=== PATIENT | female | born 1965 | race Hispanic/Latino ===

== ENCOUNTER → 2019-03-24 | Day surgery (SDC) | payer BC ==
--- OUTSIDE RECORDS SUMMARY | 2019-03-24 10:48 | XMS REPORT ---
:1965 Author Organization [employer] Care Team Providers Name Role Phone Chana Null Provider Role Unavailable Allergies No Known Allergies Problems Problem Type Condition Code Onset Dates Condition Status Problem Bilateral carpal tunnel syndrome G56.03 Active Problem Adult general medical exam Z00.00 Active Problem Paresthesia of both hands R20.2 Active Assessment Left breast mass N63.20 Active Assessment Abnormal mammogram of left breast R92.8 Active Problem Constipation, unspecified K59.00 Active constipation type Problem Traumatic injury of head, initial S09.90XA Active encounter Problem Acute post-traumatic headache, not G44.319 Active intractable Problem Abnormal mammogram of left breast R92.8 Active Problem Depression with anxiety F41.8 Active Problem Tinea unguium B35.1 Active Problem Allergic state, initial encounter T78.40XA Active Problem Keratosis pilaris L85.8 Active Medications No Known Medications Results No Known Results Summary Purpose [facility] Submission
--- OUTSIDE RECORDS SUMMARY | 2019-03-24 10:48 | XMS REPORT ---
:1965 Author Organization [employer] Care Team Providers Name Role Phone Chana Null Provider Role Unavailable Allergies No Known Allergies Problems Problem Type Condition Code Onset Dates Condition Status Problem Adult general medical exam Z00.00 Active Problem Depression with anxiety F41.8 Active Problem Tinea unguium B35.1 Active Problem Otalgia of both ears H92.03 Active Problem Abnormal mammogram of left breast R92.8 Active Problem Vertigo R42 Active Problem Allergic state, initial encounter T78.40XA Active Problem Keratosis pilaris L85.8 Active Problem Acute post-traumatic headache, not G44.319 Active intractable Problem Traumatic injury of head, initial S09.90XA Active encounter Problem Constipation, unspecified K59.00 Active constipation type Assessment Abnormal mammogram of left breast R92.8 Active Problem Bilateral carpal tunnel syndrome G56.03 Active Assessment Left breast mass N63.20 Active Problem Paresthesia of both hands R20.2 Active Medications No Known Medications Results No Known Results Summary Purpose [employer] Submission
--- OUTSIDE RECORDS SUMMARY | 2019-03-24 10:48 | XMS REPORT ---
:1965 Author Organization [employer] Care Team Providers Name Role Phone Chana Null Provider Role Unavailable Allergies, Adverse Reactions, Alerts Substance Reaction Event Type N.K.D.A. Info Not Available Non Drug Allergy Problems Problem Type Condition Code Onset Dates Condition Status Problem Constipation, unspecified K59.00 Active constipation type Problem Paresthesia of both hands R20.2 Active Problem Bilateral carpal tunnel syndrome G56.03 Active Assessment Keratosis pilaris L85.8 Active Assessment Acute post-traumatic headache, not G44.319 Active intractable Assessment Traumatic injury of head, initial S09.90XA Active encounter Problem Traumatic injury of head, initial S09.90XA Active encounter Problem Allergic state, initial encounter T78.40XA Active Problem Acute post-traumatic headache, not G44.319 Active intractable Problem Tinea unguium B35.1 Active Problem Adult general medical exam Z00.00 Active Problem Keratosis pilaris L85.8 Active Problem Depression with anxiety F41.8 Active Medications Medication Code Code Instructions Start End Status Dosage System Date Date Effexor XR [facility] 40082054411 37.5 MG Orally Active 1 capsule with Once a day food Gabapentin [facility] 58458701987 300 MG Orally Active 1 capsule Twice a day [place] ND 51959168211 10 % Externally Nov 05, August 01, Active 1 application Once a day 2018 2019 to affected area Alprazolam ND 84577026456 1 MG Orally Active 1 tablet Onced a day PRN Lactic Acid [facility] 59633318846 10 % Externally Active 1 application Twice a day to affected area Results No Known Results Summary Purpose [employer] Submission
--- OUTSIDE RECORDS SUMMARY | 2019-03-24 10:48 | XMS REPORT ---
[...] Constipation, unspecified K59.00 Active constipation type Assessment Otalgia of both ears H92.03 Active Problem Bilateral carpal tunnel syndrome G56.03 Active Assessment Vertigo R42 Active Problem Paresthesia of both hands R20.2 Active Medications Medication Code Code Instructions Start End Status Dosage System Date Date Lactic Acid [facility] [place] 03731582977 10 % Externally Active 1 application Twice a day to affected area Effexor XR [facility] [place] 24855333785 37.5 MG Orally Active 1 capsule with Once a day food Alprazolam [facility] [place] 04628973692 1 MG Orally Active 1 tablet Onced a day PRN Gabapentin [facility] [place] 87223374368 300 MG Orally Active 1 capsule Twice a day [place] ND 76541219043 10 % Externally Nov 05, August 01, Active 1 application Once a day 2018 2019 to affected area Pseudoeph-Bro [facility] [place] [id number] 30-2-10 MG/5ML Feb 17, Feb 27, Active 5 ml mphen-DM Orally q 6 2018 2019 hours PRN Results No Known Results Summary Purpose [employer] Submission
--- OUTSIDE RECORDS SUMMARY | 2019-03-24 10:48 | XMS REPORT ---
:1965 Author Organization [employer] Care Team Providers Name Role Phone Chana Null Provider Role Unavailable Allergies No Known Allergies Problems Problem Type Condition Code Onset Dates Condition Status Problem Constipation, unspecified K59.00 Active constipation type Problem Tinea unguium B35.1 Active Problem Adult general medical exam Z00.00 Active Problem Depression with anxiety F41.8 Active Problem Paresthesia of both hands R20.2 Active Problem Bilateral carpal tunnel syndrome G56.03 Active Problem Keratosis pilaris L85.8 Active Problem Allergic state, initial encounter T78.40XA Active Medications No Known Medications Results No Known Results Summary Purpose [employer] Submission
--- NOTE | 2019-03-24 14:14 | RAD REPORT ---
EXAM DESCRIPTION: US - Breast Core BX w/US Guidance - 03/24/2019 12:06 pm CLINICAL HISTORY: ^N53.20, R92.8 COMPARISON: Ultrasound March 02, 2019, mammogram January 14, 2019 TECHNIQUE: The patient presents for ultrasound-guided biopsy of a previously detailed 15 millimeter mass in the lateral 3 o'clock left breast. The ultrasound-guided core biopsy procedure, risks and alternatives were discussed with the patient i n detail. After answering all questions, both oral and written consent were obtained. Time out proced ure was performed. The patient had no contraindicated allergy or medication history. Preliminary imaging identified the 15 millimeter lateral left breast mass. Sonographic evaluation of the outer left breast did not identify any other mass. This is the correlate to prior imaging. The lateral left breast was prepped and draped in the usual sterile fashion. From a lateral approach, skin and deeper tissues were anesthetized with 1% lidocaine. Under direct sonographic visualization a 14 gauge vacuum assisted core biopsy needle was advanced and placed at the lateral margin of the ma ss. Under direct sonographic visualization the initial biopsy was performed. Needle was seen to trans it the mass. A small fragment of tissue and fluid was observed when the specimen was removed from the needle. Re-evaluation of the breast tissue show the mass to be poorly visualized and reduced in volu me. Remnant of the mass was identified an a second core biopsy was obtained. After the second biopsy that was no remnant or clearly defined mass remaining. All obtained material was retained for cytology/histology evaluation. There was no remnant site ident ifiable that would allow all accurate placement of a post biopsy clip. Pending the pathology findings , these biopsy findings would suggest that the mass was a complex cyst or cyst cluster that broke apa rt during the biopsy procedure. Post biopsy imaging showed no hematoma or measurable bleeding within the breast. Hemostasis was obtai frieda at the skin site with a sterile bandage placed. Post procedure care and precaution instructions were given to the patient. IMPRESSION: 1. Ultrasound-guided core biopsy was performed of the left breast lateral 15 mm mass. Al l obtained material was given to pathology for histologic assessment. 2. As detailed above, the mass is suspected to be a complex cyst that was fragmented and rupture duri ng the biopsy procedure. 3. Final pathology is pending. If the final pathology findings are nondiagnostic or do not indicate a benign process that was explain the ruptured mass, follow-up diagnostic mammography September 2019 would be recommended to re-evaluate the region.
== END ==
LOC: DS 10:46
PROVIDERS: ATTEND Nurse Practitioner Family
DX: N63.20 Unspecified lump in the left breast, unspecified quadrant (principal)
CPT/HCPCS: 19083; 88305